=== PATIENT | male | born 1960 | race Caucasian/White ===

== ENCOUNTER 2019-06-21 08:10 | Emergency (ER) | payer SELFPAY ==
[2019-06-21 08:18] VITALS: BP 119/65; PULSE 85; RESP 16; TEMP 36.5; O2SAT 98
[2019-06-21] MEDS: methylPREDNISolone SUCC 125 MG VIAL IVP (08:40)
[2019-06-21] MEDS: Normal Saline 1,000 ML 1000 ML IV (08:40)
--- NOTE | 2019-06-21 08:46 | ED.GENADUL_ITS ---
Discharge Plan Disposition Patient Disposition: HOME Condition: Improving Discharge Details Chief Complaint: DentalOral Clinical Impression: Mild tongue swelling Primary Care Provider: Unknown,Unknown ED Provider: Chip Jones Home Meds and New Rx's Prescriptions: New prednisone 20 mg tablet 60 mg PO DAILY 5 Days Qty: 15 RF: 0 Discharge Instructions Instructions: Angioedema (ED) Additional Instructions: Prednisone as directed. [id number] Benadryl as directed. Please watch for new or worsening symptoms and return immediately to our ER or any ER longer travels. I cannot stress the importance of establishing a primary care provider in your hometown and further evaluating this as an outpatient. You may need to see an instructor watch assembly. As we discussed, tongue swelling can be life-threatening. Medical Decision Making 59-year-old male who presents for tongue swelling. Reports it began yesterday evening, was severe overnight but much improved now. Denies any obvious exposures for potential allergic reactions. This has happened in the past but resolved on its own. He did not take any [id number] medications. Currently patient appears well, nontoxic, airway is patent. No obvious angioedema. Only physical finding is that of mild tongue swelling. Patient agreeable to having IV access obtained, giving IV fluids, Benadryl and Solu- Medrol. Will observe the patient reassess Patient observed in the ER for over 2 hours. He reports improvement, on examination his tongue does look smaller than it had upon presentation. Lungs are clear to auscultation, no acute distress, airway patent. He is on no current medications, has no history of personal or family angioedema. Denies any environmental exposures that may have preceded his tongue swelling, possible allergic reaction. He is neurologically intact. Discussed options. Patient comfortable discharge now. He is able to speak in full sentences, was p.o. challenge without difficulty. Lungs are clear to auscultation, no wheezing. Will send home with a 5-day burst dose of steroids but discussed the importance of returning to our ER or any ER along his travels for tongue swelling, difficulty breathing, etc. and the importance of following up with a primary care provider for outpatient evaluation and possible allergy testing. I stressed the importance of this as tongue swelling, angioedema, etc. can be life-threatening. HPI General Mode of arrival: ambulatory . Date/Time Provider Initiated Documentation: 06/21/19 08:17 . Limitations to Documentation: no limitations . Information obtained by: patient . HPI Narrative: This is a 59-year-old gentleman with no significant past medical history presented to the ER for mild tongue swelling. He reports that he lives approximately 2 hours away, drove to this area yesterday for work, checked did not but did not work, subsequently went to his hotel and developed what he describes as moderate tongue swelling. He never had any difficulty breathing or swallowing. He reports this has happened in the past a few times but has never had it evaluated. He reports URI-like symptoms over the past week which are resolving. He denies any new foods or environmental exposures that he could think of that would result in an allergic reaction. Denies rash on his body. Denies any wheezing. Denies any throat pain. In the past his symptoms have typically resolved overnight, he still has mild swelling now so he came to the ER for further evaluation. Related Data Home Medications Medication Instructions Recorded Confirmed prednisone 60 mg PO DAILY 5 Days #15 tab 06/21/19 Previous Rx's Medication Instructions Recorded prednisone 60 mg PO DAILY 5 Days #15 tab 06/21/19 Allergies Allergy/AdvReac Type Severity Reaction Status Date / Time No Known Allergies Allergy Unverified 06/21/19 08:23 General Stated Complaint: DentalOral ARMANDO: 2 Review of Systems Constitutional Constitutional: Denies chills, Denies fatigue, Denies fever(s) and Denies headache(s) Eyes Eyes: Denies eye discharge ENT Ears, Nose, Mouth, and Throat: Denies otalgia, Denies facial pain, Denies headache(s), Denies lip swelling, Denies neck pain, Denies sore throat, Denies throat swelling, Reports tongue swelling and Reports other (Mild rhinorrhea) Cardiovascular Cardiovascular: Denies chest pain and Denies dyspnea Respiratory Respiratory: Reports cough, Denies dyspnea and Denies wheezing Gastrointestinal Gastrointestinal: Denies abdominal pain, Denies nausea and Denies vomiting Musculoskeletal Musculoskeletal: Denies myalgias and Denies neck pain Integumentary/Breasts Skin/Breast: Denies rash Neurologic Neurologic: Denies headache(s) Endocrine Endocrine: Denies fatigue Allergic/Immunologic Allergic/Immunologic: Denies urticaria, Denies lip swelling, Denies throat swelling, Reports tongue swelling and Denies wheezing [facility] Social History Smoking/Tobacco Use Status: Never Substance use type: marijuana Details: had it last night Exam Const General: cooperative, healthy appearing, comfortable and no acute distress Orientation: alert and awake [facility] Head: normal to inspection, normocephalic and atraumatic Ears: external ears normal, TM's normal bilaterally and EAC's normal General nose exam: external nose normal Face and sinus: normal facial exam Mouth: moist mucous membranes and tongue abnormal other (Mild swelling without obvious angioedema. No discomfort. Airway patent); not edematous Teeth and gingiva: poor dentition (No swelling, point tenderness, or abscess.) Throat: posterior oropharynx normal Eyes Conjunctivae: conjunctivae normal Sclera: sclerae normal Neck Neck: normal visual inspection, full ROM, no lymphadenopathy, no meningeal signs, trachea midline and supple Resp Effort & Inspection: normal respiratory effort and able to speak in complete sentences Auscultation: clear to auscultation bilaterally Cardio Rate: regular rate Rhythm: regular rhythm GI Palpation: soft and nontender Back/Spine/Pelvis Back: No back tenderness Skin General skin exam: no rashes or lesions noted Neuro General: alert, awake, oriented x3, moves all extremities, no focal motor deficits and CN's II-XI intact bilaterally Cranial Nerves: CN's II-XI intact bilaterally Speech: speech normal Motor: muscle tone normal throughout and strength 5/5 throughout Sensory Exam: no sensory deficits noted Extrem General: normal to inspection Psych Appearance: grossly normal Mental Status: mental status grossly normal Course Vital Signs Vital signs: Vital Signs Temperature 36.5 C 06/21/19 08:18 Pulse 85 06/21/19 08:18 Respiratory Rate 16 06/21/19 08:18 Blood Pressure 119/65 06/21/19 08:18 Pulse Oximetry 98 06/21/19 08:18 Temperature 36.5 C 06/21/19 08:18 Temperature Source Skin 06/21/19 08:18 Pulse 85 06/21/19 08:18 Respiratory Rate 16 06/21/19 08:18 Respiratory Effort Non-Labored 06/21/19 08:18 Blood Pressure 119/65 06/21/19 08:18 Blood Pressure Position Sitting 06/21/19 08:18 Pulse Oximetry 98 06/21/19 08:18 Oxygen Delivery Method Room Air 06/21/19 08:18 Oxygen Flow Rate 0 06/21/19 08:18 Pain Level 0 06/21/19 08:23
[2019-06-21] MEDS: diphenhydrAMINE 50 MG/ML VIAL IM/IVP (08:47)
[2019-06-21 09:47] VITALS: BP 129/66; PULSE 79; RESP 16; TEMP 37.1; O2SAT 98
[2019-06-21 10:37] VITALS: BP 110/69; PULSE 86; RESP 18; TEMP 37; O2SAT 97
== END 2019-06-21 10:45 | disposition home or self-care (01) ==
PROVIDERS: Emergency Provider Physician Assistant
DX: R22.0 Localized swelling, mass and lump, head (principal)
CPT/HCPCS: 96361; 96374; 96375; 99284; J1200; J2930